=== PATIENT | female | born 1945 | race Caucasian/White ===

== ENCOUNTER → 2023-12-17 07:11 | Outpatient (REF) | payer OTHER, SELFPAY | LOC: HWRAD 07:11 | PROVIDERS: ATTENDING PHYSICIAN Internal Medicine; FAMILY PHYSICIAN Nurse Practitioner Family | DX: J45.50 Severe persistent asthma, uncomplicated (principal) | CPT/HCPCS: 71250 ==

== ENCOUNTER → 2023-12-31 08:47 | Outpatient (REF) | payer OTHER, SELFPAY | LOC: RSP 08:47 | PROVIDERS: ATTENDING PHYSICIAN Internal Medicine; FAMILY PHYSICIAN Nurse Practitioner Family | DX: J45.50 Severe persistent asthma, uncomplicated (principal) | CPT/HCPCS: 94727; 94729; 88738; 94010 ==

== ENCOUNTER 2024-10-16 20:53 | Emergency (ER) | payer OTHER, SELFPAY ==
[2024-10-16 20:55] VITALS: BP 162/92
[2024-10-16 21:28] LABS: Hematocrit 35.9 % (37.0-47.0); Hemoglobin 12.5 g/dL (12.0-16.0); Mean Corp Hgb Conc. 34.8 g/dL (33.0-37.0); Mean Corpuscular Volume 89.5 fL (81.0-99.0); Nucleated Red Blood Cells % 0 %; Platelet Count 225 10^3/uL (130-400); Red Cell Dist. Width 12.9 % (11.5-14.5)
[2024-10-16 21:35] LABS: Urine Character Clear (Clear)
[2024-10-16 21:40] LABS: ALT (SGPT) 18 U/L (0-35); AST (SGOT) 25 U/L (14-36); Albumin 4.2 g/dl (3.5-5.0); Alkaline Phosphatase 89 U/L (38-126); Blood Urea Nitrogen 18 mg/dl (7-17); Calcium 9.8 mg/dl (8.4-10.2); Carbon Dioxide 29 mmol/L (22-30); Chloride 96 mmol/L (98-107); Glucose 126 mg/dl (70-99); Potassium 4.3 mmol/L (3.5-5.1); Sodium 129 mmol/L (135-145); Total Protein 6.5 g/dl (6.3-8.2); eGFR > 60.00
[2024-10-16 21:45] LABS: Urine Red Blood Cell 0-2 /HPF (0-2); Urine Squamous Cell 0-2 /LPF (Few); Urine White Cell 21-25 /HPF (0-5)
[2024-10-16 21:49] LABS: Troponin I < 0.012 ng/ml
[2024-10-16 22:05] VITALS: BMI 32.3
[2024-10-16 22:10] VITALS: BP 145/75
[2024-10-16 22:12] VITALS: BP 155/84
[2024-10-16 22:14] VITALS: BP 129/78
[2024-10-16 22:26] VITALS: BP 129/78; BP 145/75; BP 155/84; PULSE 56; PULSE 70; PULSE 78
[2024-10-16 23:00] VITALS: BP 130/75
--- NOTE | 2024-10-16 23:57 | EDRN ---
Dr. Aquino at bedside seeing patient.
[2024-10-17] VITALS: BP 155/86
[2024-10-17] MEDS: ANTIVERT 25 MG PO (00:06)
[2024-10-17] MEDS: NSS 1000 IV (00:06)
[2024-10-17 01:00] VITALS: BP 147/82
--- NOTE | 2024-10-17 01:26 | ED.GENMED ---
History of Present Illness
General
Chief Complaint: Dizziness
Source: patient and previous radiology exam (Unremarkable nuclear stress test October 2021)
Exam Limitations: none
Time Seen by Provider: 10/16/24 23:47
Nursing documentation reviewed up to this point in time: agreed with
History of Present Illness
History of Present Illness:
This is an 79-year-old woman with history of hypertension, hyperlipidemia, asthma, [id number] diabetes as well as hypothyroidism.
She presents with 1 day history of intermittent dizziness, lightheadedness accompanied with nausea and vomiting. Dizziness, lightheadedness nausea and vomiting are much worse when she is up and about, resolve when she is sitting or lying still.
She denies chest pain or palpitations but states at 1 point she checked her pulse ox which was normal but her heart rate was in the 60s and she was concerned when her heart rate is generally in the 70s. She denies headache, denies nasal congestion,
no ear pain or ringing nor loss of hearing. No history of similar episodes in the past and no close contacts with similar symptoms. She denies fever nor chills. She denies abdominal pain, no diarrhea nor constipation. She is vomited perhaps 4
times today, denies hematemesis.
Past History
Past History
ED Past Medical History: Asthma, HTN, Hypercholesterolemia, NIDDM, Hypothyroidism and Other (Vertigo)
ED Past Surgical History: Appendectomy and Gynecological (Tubal ligation)
Social History
Tobacco: Former smoker
Alcohol: Occasional
Personal:
Living: alone
Employment: Employed
Family History
Family History: Hypertension; Negative CAD
Phy Exam
Physical Exam
Physical Exam:
GENERAL: 79-year-old woman appears her stated age, awake and alert, pleasant, appears in no acute distress. Orthostatic vital signs mildly positive but patient asymptomatic with standing at bedside.
EYE: pupils equal and reactive. Extraocular muscles intact. Negative test of skew. Head impulse negative. Anicteric
NECK: Supple, nontender, no meningismus, no significant adenopathy.
ENT: posterior pharynx is clear, oral mucosa is moist. TM clear b/l, nares patent.
CARDIAC: Regular rate and rhythm. no murmur.
LUNGS: Clear breath sounds bilaterally, no acute respiratory distress, no wheezes/rales/rhonchi
ABDOMEN: Soft, nondistended, without focal tenderness, no r/g, no cvat. normoactive BS.
NEUROLOGICAL: Alert and oriented x3, no focal neuro deficits.
SKIN: Warm and dry, normal color, skin intact. No rash.
MUSCULOSKELETAL: No C/C/E. peripheral pulses are full and equal b/l. No palpable tenderness.
PSYCH: Normal and appropriate interaction.
Course
Orders/Labs/Results
Orders:
Orders
10/16/24 20:58
Electrocardiogram (*1) Urgent
Reason for Study: Chest Pain
EKG- Treatment ONCE
10/16/24 21:14
Complete Blood Count/With Diff Urgent
Comprehensive Metabolic Panel Urgent
Troponin I Urgent
Urinalysis Reflex To Culture Urgent
Date Specimen was Collected: 10/16/24
Time Specimen was Collected: 20:58
Urine Microscopic Reflex Cult Urgent
Urine Culture Urgent
MONICA Source: U
Specimen Description:
Date Specimen was Collected: 10/16/24
Time Specimen was Collected: 20:58
10/17/24 00:02
0.9% Sodium Chloride 1000 ml [Nss] 1,000 ml IV BOLUS
Meclizine [Antivert] 25 mg PO NOW STA
Abnormal Lab Results
10/16/24
21:14
WBC 11.5 H 10^3/uL
(4.8-10.8)
RBC 4.01 L 10^6/uL
(4.20-5.40)
Hct 35.9 L %
(37.0-47.0)
MCH 31.2 H pg
(27.0-31.0)
MPV 10.5 H fL
(7.4-10.4)
Absolute Lymphs (auto) 5.0 H 10^3/uL
(1.2-3.4)
Absolute Monos (auto) 0.8 H 10^3/uL
(0.1-0.6)
Sodium 129 L mmol/L
(135-145)
Chloride 96 L mmol/L
(98-107)
BUN 18 H mg/dl
(7-17)
Glucose 126 H mg/dl
(70-99)
Leukocyte Esterase Rfl 3+ A
(Negative)
Urine WBC (Reflex) 21-25 A /HPF
(0-5)
Urine Bacteria (Reflex) Few A
(Negative)
10/16/24 21:14
10/16/24 21:14
Vital Signs
Initial and Last Documented VS:
Initial Vital Signs
Temp Pulse Resp BP Pulse Ox
97.8 F 65 16 162/92 96
10/16/24 20:55 10/16/24 20:55 10/16/24 20:55 10/16/24 20:55 10/16/24 20:55
Last Documented Vital Signs
Temp Pulse Resp BP Pulse Ox
97.8 F 53 12 130/75 99
10/16/24 20:55 10/16/24 23:45 10/16/24 23:45 10/16/24 23:00 10/16/24 23:45
MDM/Problems Addressed
Differential Diagnosis Includes:
Concern for orthostasis, benign paroxysmal positional vertigo, central vertigo, gastroenteritis, cardiac arrhythmia.
Labs reveal normal H&H, mildly elevated white blood cell count of 11.5.
Mild hyponatremia with sodium of 129. Mild prerenal azotemia with BUN of 18, creatinine of 0.6. Glucose acceptable at 126. Troponin is negative.
Urinalysis has 20-25 WBCs, few bacteria, leukocyte esterase positive. Patient remains afebrile, has had no UTI symptoms, no abdominal pain or flank pain. This is likely asymptomatic bacteriuria.
EKG shows normal sinus rhythm with first-degree AV block, LVH with borderline left bundle branch block. Overall similar to previous EKG May 2020.
As above, orthostatic vital signs mildly positive.
Mild hyponatremia may be an element of mild dehydration along with several episodes of vomiting today.
Monitor shows normal sinus rhythm without ectopy.
Will give IV normal saline bolus and will trial a dose of Antivert.
Chronic conditions affecting care: DM, HTN and Other (Hyperlipidemia)
*Pulse Oximetry
SaO2: 99
Oxygen Mode of Delivery: Room air
Patient hypoxic: no
*EKG
Interpreted by ED Provider?: Yes
Comparison EKG: no changes (Unchanged from previous May 2020)
Rate: normal
Rhythm: sinus
Steen: left axis deviation
Interval: first degree heart block
QRS Pattern: left bundle branch block (Incomplete left bundle branch block)
Ischemia: no ischemia
*[employer] Interpretation
Rate: normal
Interpretation: normal
Rhythm: sinus
*Critical Care Note
Total Time (30-74mins, 75-104mins- exclusive of procedures): Not Applicable
Update Note
Update Note:
01:35
Patient feeling markedly improved with complete resolution of symptoms.
Has ambulated to and from the bathroom as well as ambulated about the halls with steady unaided gait and no return of vertiginous nor lightheaded symptoms, no return of nausea.
Tolerating oral fluids.
I suspect benign paroxysmal peripheral vertigo as cause for symptoms and will prescribe Antivert for as needed dizziness, nausea.
Discussed importance of staying well-hydrated on a daily basis.
Prompt follow-up with PCP for recheck.
Return precautions discussed.
ED Attending Note
-
Portions of this chart may have been created with voice recognition software.� Occasional wrong word or��sound alike� substitutions may have occurred due to the inherent limitations of voice recognition software.
Discharge Plan
Departure
Patient Disposition: Home (Routine Discharge)
Date of Disposition: 10/17/24
Time of Disposition: 01:33
Patient with high blood pressure during this ER visit?: No
Condition: Good
Discharge Problem:
acute positional vertigo, Acute nausea with nonbilious vomiting
Instructions: Vertigo (a type of dizziness), Acute Nausea and Vomiting
Prescriptions:
New
meclizine 25 mg tablet
25 mg PO QID PRN (Reason: dizziness, nausea) Qty: 20 0RF
No Action
cyanocobalamin (vitamin B-12) 1,000 MCG tablet
1,000 mcg PO DAILY
fluticasone propionate 1 SPRAY spray,suspension
1 spray intranasal BID
Patient Comments:
1 spray each nostril BID
rosuvastatin 10 MG tablet
10 mg PO HS
cholecalciferol (vitamin D3) 1,000 UNITS tablet
5,000 units PO DAILY
famotidine 20 MG tablet
20 mg PO BID Qty: 28 0RF
ascorbic acid (vitamin C) [Vitamin C] 500 MG tablet
500 mg PO DAILY Qty: 14 0RF
zinc sulfate 220 MG capsule
220 mg PO DAILY Qty: 14 0RF
fluticasone propion-salmeterol [Wixela Inhub] 1 EACH blister with device
1 puff IH R BID
levothyroxine 88 MCG tablet
88 mcg PO DAILY
lisinopril-hydrochlorothiazide 1 EACH tablet
1 tab PO DAILY
montelukast 10 MG tablet
10 mg PO HS
albuterol sulfate 1 PUFF HFA aerosol inhaler
2 puff inhalation R Q4HPRN PRN (Reason: sob)
metformin 500 MG tablet extended release 24 hr
500 mg PO QPM@1700
ipratropium bromide 1 SPRAY spray,non-aerosol
2 spray intranasal TID
turmeric 400 MG capsule
1 cap PO DAILY
guaifenesin [Mucus Relief ER] 600 MG tablet extended release 12hr
1,200 mg PO Q12
Lactobac 2-Bifido 1-S. therm [High Potency Probiotic] 1 CAP capsule
1 cap PO DAILY
melatonin 5 MG tablet
5 mg PO HS
Referrals:
Magalys Day CRNP [Family Provider, Family Practice] - Call in 1-3 days for appt
Interventions
Interventions:
*Risk Screen - Suicide Last Done: 10/16/24 20:55
*General Assessment Last Done: 10/16/24 22:05
*Neglect/Abuse Screening Last Done: 10/16/24 20:55
*ED- Fall Risk Assessment Last Done: 10/16/24 22:05
*ED COVID-19 Vaccine History Last Done: 10/16/24 22:05
ED- Neurological Assessment Last Done: 10/16/24 22:27
ED- Cardiac Assessment Last Done: 10/16/24 22:27
Discharge Date and Time
Print Language: QATARI
== END 2024-10-17 01:52 | disposition home or self-care (01) ==
LOC: EMR 20:53
PROVIDERS: Student in an Organized Health Care Education/Training Program; EMERGENCY PHYSICIAN Emergency Medicine; FAMILY PHYSICIAN Nurse Practitioner Family
DX: R42 Dizziness and giddiness (principal); R11.2 Nausea with vomiting, unspecified; I10 Essential (primary) hypertension; E78.00 Pure hypercholesterolemia, unspecified; J45.909 Unspecified asthma, uncomplicated; E11.9 Type 2 diabetes mellitus without complications; E03.9 Hypothyroidism, unspecified; Z82.49 Family history of ischemic heart disease and other diseases of the circulatory system; Z87.891 Personal history of nicotine dependence; Z90.49 Acquired absence of other specified parts of digestive tract; Z98.51 Tubal ligation status
CPT/HCPCS: 99283; 96360; 80053; 81003; 81015; 84484; 85025; 87086; 93005